=== PATIENT | male | born 1985 | race Caucasian/White ===

== ENCOUNTER 2021-02-27 22:46 | Emergency (ER) | payer OTHER, SELFPAY ==
[2021-02-27 23:00] VITALS: BP 172/96; PULSE 60; RESP 20; TEMP 36.1; O2SAT 96
--- NOTE | 2021-02-28 01:16 | ED.DENTAL ---
HPI - Dental/Oral General Chief complaint: Dental/Oral Stated complaint: dental pain, infection Time Seen by Provider: 02/28/21 01:15 Source: patient Mode of arrival: Ambulatory Limitations: no limitations History of Present Illness HPI Narrative: This is a 35-year-old male comes in with complaint of dental pain and infection at the tooth 12. Patient states he broke part of the tooth quite sometime ago. He was supposed to have a root canal on the 18 of February but he states his office visit got pushed back into March. Patient states he started having increasing pain, redness and swelling at that site. Patient states he significantly uncomfortable. He has tried some Aleve at home with minimal improvement. He denies any other major medical issues. He has not had any fevers, no chills, no swelling of the face, warmth or redness. He has not had any purulent drainage that he is appreciated. He denies any allergies to medications. Does smoke, occasional alcohol. THC but denies other illicit. Related Data Previous Rx's Medication Instructions Recorded [id number]-yhrqyfeyk-zcosykngf 3.5 4 drp OTIC (EAR) TID #10 ml 04/09/20 mg/mL-10,000 unit/mL-1 % ear solution meloxicam 7.5 mg tablet 7.5 mg PO BID PRN #10 tab 02/28/21 penicillin V potassium 500 mg 500 mg PO QID #40 tab 02/28/21 tablet Allergies Allergy/AdvReac Type Severity Reaction Status Date / Time No Known Drug Allergies Allergy Unverified 04/09/20 16:54 Review of Systems Review of Systems ROS Unobtainable: All systems reviewed & are unremarkable except as noted in HPI and below Patient History Medical History Hordeolum externum (stye) No active medical problems Social History Smoking Status: Current every day smoker Smoking Status: Current every day smoker alcohol intake frequency: holidays/special occasions only Substance Use Type: marijuana Exam Narrative Exam Narrative: GEN: well nourished, well appearing male, alert and oriented x 3, patient appears to be in moderate distress. HEENT: Atraumatic, pupils are equal round reactive to light, extraocular movements are intact, nares are clear, TMs are clear with no fluid, there is no conjunctival pallor. Throat is clear without any exudates, erythema, tonsillar enlargement or uvular deviation, patient has significant dental caries. Tooth 12. Does appear cracked although this appears old with the edges warrants move and dental caries in the center. There is some erythema along edge of the tooth but no drainage or large fluctuant collection. Patient's tooth 13 is missing. HEART: Regular rate and rhythm without murmur, clicks, rubs. LUNGS:Lungs clear to auscultation, no wheezes, rales, crackles, chest moves symmetrically ABD:bowel sounds normal, soft, non-tender, no guarding, rebound, rigidity, no masses noted, no hepatosplenomegaly MSCL: Non-tender, no muscle atrophyfull range of motion, normal gait NEURO:CN 2-12 intact, sensation normal SKIN: No erythema, warmth or skin changes noted. Initial Vital Signs Initial Vital Signs: Vital Signs Temperature 97 F L 02/27/21 23:00 Pulse Rate 60 02/27/21 23:00 Respiratory Rate 20 02/27/21 23:00 Blood Pressure 172/96 H 02/27/21 23:00 Pulse Oximetry 96 02/27/21 23:00 Procedures Nerve Block Nerve Block 1: Time of procedure: 01:39 Time out performed: Yes Local Anesthetic: bupivacaine 0.5% Amount of anesthesia used (mL): 0.25 Side: left Intraoral Nerve Block: supraperiosteal (tooth #12) Procedure Successful: Yes Patient Tolerated Procedure: Well Complications: none Course Orders Ordered: Discontinued Medications Bupivacaine HCl (Bupivacaine 0.5% (Pf) Vial) 30 ml INJ INTRA-OP ONE Stop: 02/28/21 01:22 Last Admin: 02/28/21 01:28 Dose: 30 ml Documented by: KATY Penicillin V Potassium (Penicillin 250 Mg Tab Prepack) 1 bottle MISC SEEINSTR ONE Stop: 02/28/21:22 Last Admin: 02/28/21 01:28 Dose: 1 bottle Documented by: KATY Vital Signs Vital signs: Vital Signs - 8 hr 02/27/21 23:00 02/28/21 01:46 Temperature 97 F L Pulse Rate 60 54 L Respiratory Rate 20 17 Blood Pressure 172/96 H 171/90 H Pulse Oximetry 96 98 MDM - Dental/Oral MDM Narrative Medical decision making narrative: This is a 35-year-old male with chronically broken tooth which started developing some pain and swelling and redness at the gum. Patient appears to be developing infection. He has a dentist to follow up with. He did request for dental block this was provided with some relief. Patient was given prescription for meloxicam can continue with Tylenol. And 1st dose oral antibiotics given in the department. Discharge Plan Departure Patient Disposition: Home Clinical Impression: Dental infection, Broken tooth Instructions: Tooth Fracture Activity Restrictions/Additional Instructions: Follow up with your dentist for treatment and repair. We used bupivacaine for the numbing medication today typically wears off and 8-12 hours but every patient metabolize is this medication at a different speed. Take antibiotics until they are completely gone. You may take up to a 1000 mg every 8 hours as needed for pain in combination with meloxicam 1 tablet every 12 hours as needed for pain. Prescription sent to [facility] in [place]. Please return for fevers, new swelling, redness of the face, mouth, lips or tongue, neck, difficulty swallowing, changes to the voice or other new or concerning symptoms. Prescriptions: New penicillin V potassium 500 mg tablet 500 mg PO QID Qty: 40 RF: 0 meloxicam 7.5 mg tablet 7.5 mg PO BID PRN (Reason: pain) Qty: 10 RF: 0 No Action sejrtkpe-saeeumdnt-NU 3.5-10,000-1 mg/mL-unit/mL-% solution 4 drp otic (ear) TID Qty: 10 RF: 2
[2021-02-28] MEDS: BUPIVACAINE 0.5% (PF) VIAL 30 ML INJ (01:28)
[2021-02-28] MEDS: PENICILLIN 250 MG TAB PREPACK 1 BOTTLE MISC (01:28)
[2021-02-28 01:46] VITALS: BP 171/90; PULSE 54; RESP 17; O2SAT 98
== END 2021-02-28 01:47 | disposition home or self-care (01) ==
PROVIDERS: Emergency Provider Emergency Medicine
DX: K03.81 Cracked tooth (principal); K04.7 Periapical abscess without sinus
CPT/HCPCS: 64450; 99282

== ENCOUNTER → 2022-10-16 08:25 | Outpatient (CLI) | payer OTHER, SELFPAY ==
--- NOTE | 2022-10-16 08:28 | DI.RAD.S_ITS ---
PROCEDURE: XR HIP W PEL IF DONE ROSMERY MIN 4V INDICATIONS: knee pain, hip pain TECHNIQUE: AP pelvis with lateral view(s) of the bilateral hip(s). COMPARISON: None. FINDINGS: Bones: No fractures or dislocations. Moderate right hip joint osteoarthritis and vaaq-gz-qellyseo left hip joint osteoarthritis is seen. No evidence of avascular necrosis of femoral head. Pelvic ring appears intact. No suspicious bony lesions. Soft tissues: The visualized bowel gas pattern is normal. No suspicious soft tissue calcifications. 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 No pelvic or hip fracture. No evidence of avascular necrosis. Dictated by: Kirk Talley M.D. on 10/16/2022 at 11:33 Approved by: Kirk Talley M.D. on 10/16/2022 at 11:33
--- NOTE | 2022-10-16 08:28 | DI.RAD.S_ITS ---
PROCEDURE: XR KNEE RT 3V INDICATIONS: knee pain TECHNIQUE: 3 views of the knee were acquired. COMPARISON: None. FINDINGS: Bones: Fragmented appearance of tibial tuberosity near distal patellar tendon insertion is seen suggestive of old healed [place]-Schlatter disease. No acute fracture or dislocation. No suspicious bony lesions. Soft tissues: No joint effusion. No suspicious soft tissue calcifications. 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 No acute fracture or dislocation. No significant joint effusion. Dictated by: Kirk Talley M.D. on 10/16/2022 at 11:33 Approved by: Kirk Talley M.D. on 10/16/2022 at 11:40
[2022-10-16 10:49] LABS: Alanine Aminotransferase 59 IU/L (<50); Albumin 4.6 g/dL (3.5-5.0); Albumin Globulin Ratio 1.5 (1.0-2.8); Alkaline Phosphatase 64 U/L (38-126); Aspartate Aminotransferase 38 IU/L (17-59); BUN Creatinine Ratio 27.9 (6-22); Bilirubin Total 0.5 mg/dL (0.2-1.3); Blood Urea Nitrogen 19 mg/dL (9-20); Calcium 9.4 mg/dL (8.4-10.2); Carbon Dioxide 30 mmol/L (22-32); Chloride 101 mmol/L (98-107); Cholesterol 146 mg/dL (140-199); Estimated Glomerular Filt Rate > 60 mL/min (>60); Globulin 3.1 g/dL (1.7-4.1); Glucose 95 mg/dL (70-100); HDL Cholesterol 60 mg/dL (40-60); HEMOLYSIS < 15 (0-50); LDL Cholesterol Calculated 71 mg/dL (<100); Potassium 5.1 mmol/L (3.4-5.1); Sodium 139 mmol/L (137-145); Total Protein 7.7 g/dL (6.3-8.2); Triglycerides 75 mg/dL (35-150)
[2022-10-17 07:03] LABS: Labcorp Hemoglobin (Hb) A1c 5.9 % (4.8-5.6)
== END ==
PROVIDERS: PCP Family Medicine; Referring Provider Family Medicine; Visit Provider Family Medicine
DX: G89.29 Other chronic pain (principal); I10 Essential (primary) hypertension; M25.551 Pain in right hip; M25.552 Pain in left hip; M25.561 Pain in right knee; M16.0 Bilateral primary osteoarthritis of hip
CPT/HCPCS: 36415; 73522; 73562; 80053; 80061; 83036

== ENCOUNTER → 2022-10-26 16:38 | Outpatient (CLI) | payer OTHER, SELFPAY ==
--- NOTE | 2022-10-26 16:40 | DI.RAD.S_ITS ---
PROCEDURE: XR SHOULDER RT MIN 2V INDICATIONS: proximal clavicle tender/bony abnormality TECHNIQUE: 3 views of the shoulder were acquired. COMPARISON: None. FINDINGS: Bones: No fractures or dislocations. No suspicious bony lesions. Visualized ribs appear intact. Mild degenerative AC joint spurring Soft tissues: No suspicious soft tissue calcifications. IMPRESSION: Mild degenerative AC joint Approved by: Fantasma Snow M.D. on 10/26/2022 at 16:33
--- NOTE | 2022-10-26 16:40 | DI.RAD.S_ITS ---
PROCEDURE: XR CLAVICLE RT INDICATIONS: proximal clavicle tender/bony abnormality TECHNIQUE: 2 views of the clavicle were acquired. COMPARISON: None. FINDINGS: Bones: No fractures or dislocations. No suspicious bony lesions. Mild degenerative AC joint Soft tissues: No suspicious soft tissue calcifications. IMPRESSION: No fracture or lytic lesion. Mild AC joint hypertrophy Approved by: Fantasma Snow M.D. on 10/26/2022 at 16:35
== END ==
LOC: RAD 16:39
PROVIDERS: PCP Family Medicine; Referring Provider Student in an Organized Health Care Education/Training Program; Visit Provider Student in an Organized Health Care Education/Training Program
DX: M25.511 Pain in right shoulder (principal); M19.011 Primary osteoarthritis, right shoulder
CPT/HCPCS: 73000; 73030

== ENCOUNTER → 2022-11-13 18:46 | Outpatient (CLI) | payer OTHER, SELFPAY ==
--- NOTE | 2022-11-13 | DI.MRI.S_ITS ---
PROCEDURE: MR SHOULDER RT WO CON INDICATIONS: rotator cuff tear or rupture of right shoulder TECHNIQUE: Noncontrast oblique coronal T2 fast spin echo with fat saturation, oblique sagittal T1 spin echo and T2 fast spin echo with fat saturation, axial T1 spin echo and T2 fast spin echo with fat saturation through the shoulder. COMPARISON: [facility], CR, XR CLAVICLE RT, 10/26/2022, 16:35. [facility], CR, XR SHOULDER RT MIN 2V, 10/26/2022, 16:35. FINDINGS: Image quality: Excellent. Rotator cuff: There is full-thickness tear of the supraspinatus tendon measuring 1.1 cm AP and 1.5 cm transverse. There is mild tendon retraction and mild supraspinatus muscle atrophy. There is moderate infraspinatus and subscapularis tendinosis with partial-thickness tear. No infraspinatus or subscapularis tendon retraction or muscle atrophy. Bones and bursae: No bone marrow contusions or fractures. There is severe acromioclavicular and moderate glenohumeral joint degeneration. The acromion demonstrates conventional anatomy, without an os acromiale. There is moderate glenohumeral joint effusion. Capsule and soft tissues: Labrum appears intact with aside from degenerative fraying. The long head of the biceps tendon demonstrates normal location and morphology. The rotator interval appears normal, without fibrosis. The coracohumeral ligament is normal in thickness. IMPRESSION: 1. Full-thickness tear of the supraspinatus tendon with tendon retraction and mild supraspinatus muscle atrophy. 2. Moderate infraspinatus and subscapularis tendinosis with partial thickness tear. 3. Severe acromioclavicular and moderate glenohumeral joint degeneration. 4. Moderate glenohumeral joint effusion. Dictated by: Mor Hernández M.D. on 11/16/2022 at 10:31 Approved by: Mor Hernández M.D. on 11/16/2022 at 10:52
== END ==
PROVIDERS: PCP Family Medicine; Referring Provider Orthopaedic Surgery; Visit Provider Orthopaedic Surgery
DX: M75.121 Complete rotator cuff tear or rupture of right shoulder, not specified as traumatic (principal); M19.011 Primary osteoarthritis, right shoulder; M25.411 Effusion, right shoulder
CPT/HCPCS: 73221

== ENCOUNTER → 2023-02-24 09:08 | Outpatient (CLI) | payer OTHER, SELFPAY ==
[2023-02-24 09:59] LABS: Add Manual Diff / Slide Review NO; Basophils Absolute Auto 100 /uL (0-100); Eosinophils Absolute Auto 300 /uL (0-450); Eosinophils Percent Auto 3.8 % (2-4); Hematocrit 43.4 % (41-53); Hemoglobin 14.7 g/dL (13.5-17.5); Lymphocytes Absolute Auto 1800 /uL (1100-4500); Lymphocytes Percent Auto 26.3 % (25-40); Mean Corpuscular HGB Conc 33.8 % (30-36); Mean Corpuscular Hemoglobin 27.5 PG (26-34); Mean Corpuscular Volume 81.3 fL (80-100); Monocytes Absolute Auto 600 /uL (0-900); Neutrophils Absolute Auto 4200 /uL (1500-7000); Neutrophils Percent Auto 60.9 % (50-75); Platelet Count 293 X10^3/uL (150-400); Red Blood Cell Count 5.34 X10^6/uL (4.5-5.9); Red Cell Distribution Width 14.3 % (11.6-14.8); White Blood Cell Count 6.9 X10^3/uL (4.5-11.0)
[2023-02-24 10:48] LABS: TSH w/ Reflex to FT4 1.18 uIU/mL (0.47-4.68)
[2023-02-24 10:50] LABS: Testosterone 238 ng/dL (132-813)
[2023-02-24 11:48] LABS: Urine N gonorrhoeae NOT DETECTED
[2023-02-24 11:49] LABS: Urine Chlamydia NOT DETECTED
[2023-02-25 06:42] LABS: RPR Screen Non Reactive (Non Reactive)
[2023-02-26 06:19] LABS: HSV 1 DNA Negative (Negative); HSV 2 DNA Negative (Negative)
== END ==
PROVIDERS: PCP Family Medicine; Referring Provider Student in an Organized Health Care Education/Training Program; Visit Provider Student in an Organized Health Care Education/Training Program
DX: Z11.3 Encounter for screening for infections with a predominantly sexual mode of transmission (principal); N50.89 Other specified disorders of the male genital organs; R53.82 Chronic fatigue, unspecified; R68.82 Decreased libido
CPT/HCPCS: 36415; 84403; 84443; 85025; 86592; 87491; 87522; 87529; 87591